=== PATIENT | male | born 2000 | race Two or more races ===

== ENCOUNTER 2019-10-11 15:00 | Emergency (ER) | payer SELFPAY ==
[~2019-10-11] VITALS: Ht 165.1 cm; Wt 73.0 kg
[2019-10-11 15:08] VITALS: BP 120/71
== END 2019-10-11 16:55 | disposition left against medical advice (07) ==
LOC: ER 15:00
DX: Z00.00 Encounter for general adult medical examination without abnormal findings (principal)
CPT/HCPCS: 99283